=== PATIENT | male | born 1935 ===

== ENCOUNTER 2019-02-25 09:50 | Emergency (ER) | payer OTHER ==
[~2019-02-25] VITALS: Ht 190.5 cm; Wt 80.3 kg
[~2019-02-25 09:50] MED LIST: ASA325 MG; GLUCOPHAGE XR500 MG; HYZAAR 50/12.51 TAB; IMDUR30 MG; LEVSIN/SL0.125 MG SL; LIPITOR20 MG; NEURONTIN300 MG; PEPCID40 MG PO
[2019-02-25] MEDS ORDERED: PRILOSEC OTC20 MG (10:08)
[2019-02-25] MEDS ORDERED: RELAFEN 500MG (10:09)
[2019-02-25] MEDS ORDERED: RAZADYNE ER16 MG (10:09)
[2019-02-25] MEDS ORDERED: AMARYL (10:11)
== END 2019-02-25 11:23 | disposition home or self-care (01) ==
LOC: ER 09:50
DX: M54.5 Low back pain (principal)